=== PATIENT | male | born 1960 | race Native Hawaiian/Other Pacific Islander ===

== ENCOUNTER 2017-11-01 00:38 | Day surgery (SDC) | payer OTHER ==
[~2017-11-01 00:38] MED LIST: ASPI81CH PO; ATOR40TA PO; Aldactone25 MG PO; B Complex #11 EACH PO; BRAIN MIGHT-DH1 EACH PO; Bactrim Ds Tab1 EACH PO; CARV3.125 PO; CIPR500 PO; CLOP75 PO; Chantix1 EACH; Colace250 MG PO; DIPH50 PO; DOC250 PO; EFFIENT10 MG PO; ENOX40I SC; FURO80 PO; Ferrous Sulfat325 M2 PO; HYDR1TAB94 PO; LEVFLO500 PO; LISI5 PO; METO25ER PO; NEPHROCAP PO; OXYC5 PO; SACC250C PO; TAMS.4ER PO; TRAM50 PO; Triamcinolone A15 GM TOP
== END 2017-11-01 22:41 | disposition home or self-care (01) ==
LOC: WOUND 00:38
PROC: 0HBMXZZ Excision of Right Foot Skin, External Approach (ICD-10-PCS; principal; 2017-11-01)
DX: Z48.00 Encounter for change or removal of nonsurgical wound dressing (principal); I73.1 Thromboangiitis obliterans [Buerger's disease]; S81.801D Unspecified open wound, right lower leg, subsequent encounter; L40.9 Psoriasis, unspecified; Z86.14 Personal history of Methicillin resistant Staphylococcus aureus infection; Z87.891 Personal history of nicotine dependence; X58.XXXD Exposure to other specified factors, subsequent encounter
CPT/HCPCS: G0463

== ENCOUNTER 2017-11-01 14:28 | Emergency (ER) | payer OTHER ==
[~2017-11-01] VITALS: Ht 167.6 cm; Wt 127.0 kg
[2017-11-01 16:01] LABS: BASOPHILS ABSOLUTE AUTO 0.01 K/mm3 (0.00-0.23); BASOPHILS PERCENT AUTO 0 % (0-2); EOSINOPHILS ABSOLUTE AUTO 0.32 K/mm3 (0.00-0.68); EOSINOPHILS PERCENT AUTO 4 % (0-6); Hematocrit 41.4 % (37.0-53.0); Hemoglobin 13.9 g/dL (13.5-17.5); IMMATURE GRAN ABSOLUTE AUTO 0.02 K/mm3 (0.00-0.10); IMMATURE GRAN PERCENT AUTO 0 % (0-1); LYMPHOCYTES ABSOLUTE AUTO 1.78 K/mm3 (0.84-5.20); LYMPHOCYTES PERCENT AUTO 19 % (21-46); MONOCYTES ABSOLUTE AUTO 0.72 K/mm3 (0.16-1.47); MONOCYTES PERCENT AUTO 8 % (4-13); Mean Corpuscular HGB 30.3 pg (26.0-34.0); Mean Corpuscular HGB Conc 33.6 g/dL (31.5-36.5); Mean Corpuscular Volume 90 fL (80-100); Mean Platelet Volume 9.4 fL (9.1-12.4); NEUTROPHILS ABSOLUTE AUTO 6.35 K/mm3 (1.96-9.15); NEUTROPHILS PERCENT AUTO 69 % (41-73); Platelet Count 312 K/mm3 (150-400); RDW Coefficient Variation 13.4 % (11.7-14.2); RDW Standard Deviation 43.6 fL (35.1-46.3); Red Blood Cell Count 4.59 M/mm3 (4.30-5.90)
[2017-11-01 16:14] LABS: Alanine Aminotransfer (ALT/SGP 51 U/L (12-78); Albumin, Blood 3.3 g/dL (3.4-5.0); Albumin/Globulin Ratio 0.6 (0.8-1.8); Alk Phos 106 U/L (50-136); Anion Gap 12 mmol/L (6-16); Aspartate Aminotrans (AST/SGOT 50 U/L (12-37); Bilirubin, Total 1.3 mg/dL (0.1-1.0); Blood Urea Nitrogen 18 mg/dL (8-24); Bun/Creatinine Ratio 23.7 (12.0-20.0); CO2, Blood 23 mmol/L (21-32); Calcium, Blood 8.8 mg/dL (8.5-10.1); Chloride, Blood 101 mmol/L (98-108); Creatinine, Blood 0.76 mg/dL (0.60-1.20); Globulin, Blood 5.3 g/dL (2.2-4.0); Glomerular Filtration Rate >60 (60-); Glucose, Blood 143 mg/dL (70-99); Sodium, Blood 136 mmol/L (136-145); Total Protein, Blood 8.6 g/dL (6.4-8.2); Troponin I <0.015 ng/mL (0.000-0.040)
== END 2017-11-01 17:37 | disposition home or self-care (01) ==
LOC: ER 14:28
PROVIDERS: Emergency Medicine
DX: R07.89 Other chest pain (principal); R06.00 Dyspnea, unspecified; I25.10 Atherosclerotic heart disease of native coronary artery without angina pectoris; Z91.013 Allergy to seafood; Z79.82 Long term (current) use of aspirin; Z79.899 Other long term (current) drug therapy; Z79.891 Long term (current) use of opiate analgesic; Z87.891 Personal history of nicotine dependence
CPT/HCPCS: 36415; 71046; 80053; 83880; 84484; 85025; 93005; 93010; 99283

== ENCOUNTER 2017-11-08 09:00 | Day surgery (SDC) | payer OTHER | END 2017-11-08 11:04 | disposition home or self-care (01) | LOC: WOUND 09:00 | DX: Z48.00 Encounter for change or removal of nonsurgical wound dressing (principal); S81.809S Unspecified open wound, unspecified lower leg, sequela; I73.1 Thromboangiitis obliterans [Buerger's disease]; Z87.891 Personal history of nicotine dependence; I25.10 Atherosclerotic heart disease of native coronary artery without angina pectoris | CPT/HCPCS: 87081; G0463 ==

== ENCOUNTER 2020-11-27 11:21 | Emergency (ER) | payer OTHER ==
[~2020-11-27] VITALS: Ht 172.7 cm; Wt 108.9 kg
== END 2020-11-27 13:11 | disposition home or self-care (01) ==
LOC: ER 11:21
DX: M79.662 Pain in left lower leg (principal); I25.10 Atherosclerotic heart disease of native coronary artery without angina pectoris; M79.89 Other specified soft tissue disorders; F17.200 Nicotine dependence, unspecified, uncomplicated; Z79.899 Other long term (current) drug therapy; Z79.82 Long term (current) use of aspirin
CPT/HCPCS: 93971; 99284-25

== ENCOUNTER 2024-04-05 21:25 | Emergency (ER) | payer OTHER ==
[~2024-04-05] VITALS: Ht 177.8 cm; Wt 90.3 kg
[~2024-04-05 21:25] MED LIST changes: +AMOCLA875 PO; +CEFTRIAXONE2 G1 IV; +Colace100 MG PO; +FURO20 PO; +GORMEL TEN228 G1 TOP; +HYDHCL25 PO; +JARDIANCE25 MG PO; +LOSARTAN-HCTZ1 EACH PO; +MELA3 PO; +METF500 PO; +METO25 PO; +MIRALAX17 GM PO; +OMEP20ER PO; +SENNA LAXATIVE8.6 MG PO; +SPIR25 PO; +VISBIOME 112.51 EACH PO; +XARELTO20 MG PO
[2024-04-05] MEDS ORDERED: Ondansetron HCl 2 MG / ML 2ML Vial IV ONE (21:55)
[2024-04-05 22:24] LABS: BASOPHILS ABSOLUTE AUTO 0.03 K/mm3 (0.00-0.23); BASOPHILS PERCENT AUTO 1 % (0-2); EOSINOPHILS PERCENT AUTO 8 % (0-6); Hematocrit 47.3 % (37.0-53.0); Hemoglobin 15.4 g/dL (13.5-17.5); IMMATURE GRAN ABSOLUTE AUTO 0.02 K/mm3 (0.00-0.10); IMMATURE GRAN PERCENT AUTO 0 % (0-1); LYMPHOCYTES ABSOLUTE AUTO 0.81 K/mm3 (0.84-5.20); LYMPHOCYTES PERCENT AUTO 12 % (21-46); MONOCYTES ABSOLUTE AUTO 0.47 K/mm3 (0.16-1.47); MONOCYTES PERCENT AUTO 7 % (4-13); Mean Corpuscular HGB 30.7 pg (26.0-34.0); Mean Corpuscular HGB Conc 32.6 g/dL (31.5-36.5); Mean Corpuscular Volume 94 fL (80-100); Mean Platelet Volume 9.5 fL (9.1-12.4); NEUTROPHILS ABSOLUTE AUTO 4.82 K/mm3 (1.96-9.15); NEUTROPHILS PERCENT AUTO 72 % (41-73); Platelet Count 283 K/mm3 (150-400); RDW Coefficient Variation 17.7 % (11.7-14.2); RDW Standard Deviation 61.1 fL (35.1-46.3); Red Blood Cell Count 5.02 M/mm3 (4.30-5.90); White Blood Cell Count 6.65 K/mm3 (4.00-11.30)
[2024-04-05 22:41] LABS: Albumin, Blood 2.1 g/dL (3.4-5.0); Albumin/Globulin Ratio 0.3 (0.8-1.8); Bilirubin, Total 2.3 mg/dL (0.1-1.0); Bun/Creatinine Ratio 24.9 (12.0-20.0); Calcium, Blood 8.9 mg/dL (8.5-10.1); Creatinine, Blood 0.8 mg/dL (0.60-1.20); Globulin, Blood 6.1 g/dL (2.2-4.0); Potassium, Blood 4.3 mmol/L (3.5-5.5); Total Protein, Blood 8.2 g/dL (6.4-8.2)
[2024-04-06] MEDS ORDERED: Ondansetron HCl 2 MG / ML 2ML Vial ONE (00:30)
[2024-04-06] MEDS ORDERED: TRAM50 PO (00:36)
[2024-04-06] MEDS ORDERED: NS 1,000 ML IV SCH (01:15)
[2024-04-06] MEDS ORDERED: Metoclopramide HCl 5MG / ML 2ML Vial IV ONE (01:15)
[2024-04-06] MEDS ORDERED: ONDA4ODT MM (03:54)
[2024-04-06 04:30] VITALS: BP 137/81
== END 2024-04-06 05:18 | disposition home or self-care (01) ==
LOC: ER 21:25
PROVIDERS: Physician Assistant
DX: R11.2 Nausea with vomiting, unspecified (principal); E86.0 Dehydration; Z91.013 Allergy to seafood; Z79.899 Other long term (current) drug therapy; Z79.82 Long term (current) use of aspirin; Z87.891 Personal history of nicotine dependence
CPT/HCPCS: 80053; 85025; 96361; 96374; 96375; 99284; J2405; J2765; J7030

== ENCOUNTER 2025-08-19 11:40 | Inpatient (IN) | payer OTHER ==
[~2025-08-19] VITALS: Ht 175.3 cm; Wt 83.3 kg
[~2025-08-19 11:40] MED LIST changes: +ONDA4ODT MM
[2025-08-19] MEDS ORDERED: Naloxone HCL 4 MG SPRAY (1 UNIT) ONE (11:45)
[2025-08-19] MEDS ORDERED: Naloxone HCl 1MG / ML 2ML SYR IV ONE (11:50)
[2025-08-19 11:58] LABS: BASOPHILS ABSOLUTE AUTO 0.03 K/mm3 (0.00-0.23); BASOPHILS PERCENT AUTO 0 % (0-2); EOSINOPHILS ABSOLUTE AUTO 0.08 K/mm3 (0.00-0.68); EOSINOPHILS PERCENT AUTO 1 % (0-6); Hematocrit 45.5 % (37.0-53.0); Hemoglobin 15.0 g/dL (13.5-17.5); IMMATURE GRAN ABSOLUTE AUTO 0.02 K/mm3 (0.00-0.10); IMMATURE GRAN PERCENT AUTO 0 % (0-1); LYMPHOCYTES ABSOLUTE AUTO 0.49 K/mm3 (0.84-5.20); LYMPHOCYTES PERCENT AUTO 7 % (21-46); MONOCYTES ABSOLUTE AUTO 0.31 K/mm3 (0.16-1.47); MONOCYTES PERCENT AUTO 4 % (4-13); Mean Corpuscular HGB Conc 33.0 g/dL (31.5-36.5); Mean Corpuscular Volume 93 fL (80-100); NEUTROPHILS ABSOLUTE AUTO 6.08 K/mm3 (1.96-9.15); NEUTROPHILS PERCENT AUTO 87 % (41-73); NRBC ABSOLUTE 0.00 K/mm3 (0.00-0.02); NRBC Auto 0.0 /100 WBC (0.0-0.2); Platelet Count 294 K/mm3 (150-400); RDW Coefficient Variation 16.0 % (11.7-14.2); RDW Standard Deviation 55.0 fL (35.1-46.3)
[2025-08-19 12:20] LABS: Alanine Aminotransfer (ALT/SGP 63 U/L (12-78); Albumin, Blood 3.7 g/dL (3.4-5.0); Albumin/Globulin Ratio 0.8 (0.8-1.8); Anion Gap 15 mmol/L (3-11); Aspartate Aminotrans (AST/SGOT 109 U/L (12-37); Bilirubin, Total 2.9 mg/dL (0.1-1.0); Blood Urea Nitrogen 30 mg/dL (8-24); CO2, Blood 24 mmol/L (21-32); Calcium, Blood 9.4 mg/dL (8.5-10.1); Chloride, Blood 99 mmol/L (98-108); Creatinine, Blood 0.79 mg/dL (0.60-1.20); Ethanol (Alcohol), Blood, Med <3 mg/dL; Globulin, Blood 4.5 g/dL (2.2-4.0); Glucose, Blood 52 mg/dL (70-99); Potassium, Blood 4.2 mmol/L (3.5-5.5); Sodium, Blood 134 mmol/L (136-145); Total Protein, Blood 8.2 g/dL (6.4-8.2)
[2025-08-19] MEDS ORDERED: NS 1,000 ML IV SCH ×3 (12:55→20:00)
[2025-08-19 13:05] LABS: U Amphetamine Screen DETECTED; U Barbiturate Screen Not Detected; U Benzodiazapine Screen Not Detected; U Buprenorphine Screen Not Detected; U Cannabinoids Screen Not Detected; U Cocaine Screen Not Detected; U Methadone Screen Not Detected; U Methamphetamine Screen DETECTED; U Opiates Screen Not Detected; U Oxycodone Screen Not Detected; U Phencyclidine Screen Not Detected
[2025-08-19 14:39] LABS: Source, Urine Clean Catch
[2025-08-19 14:44] LABS: Color, Urine Amber (P-Yellow); Glucose Qualitative, Urine Neg (Neg); Ketones, Urine 2+ (Neg); Leukocyte Esterase, Urine Neg (Neg); Protein, Urine 3+ (Neg); Specific Gravity, Urine 1.030 (1.003-1.022); Urobilinogen, Urine 1+ (Normal)
[2025-08-19 14:53] LABS: Bilirubin, Urine 1+ (Neg)
[2025-08-19 15:00] LABS: Red Blood Cells, Urine 0-2 /hpf (0-2)
[2025-08-19] MEDS ORDERED: FLU VACC TS2025-26(6MOS UP)/PF 45 MCG/0.5 ML SYRINGE IM SCH (15:15)
[2025-08-19] MEDS ORDERED: CARVEDILOL3.125 MG PO (15:22)
[2025-08-19] MEDS ORDERED: Zestril30 MG PO (15:23)
[2025-08-19] MEDS ORDERED: D5W-LR 1,000 ML IV SCH (16:25)
[2025-08-19 16:46] VITALS: BP 145/63
--- NOTE | 2025-08-19 18:02 | NUR ---
SHIFT SUMMARY PATIENT IS A&OX3-4. SLURRED SPEECH, RIGHT SIDED UPPER EXTREMETY WEAKNESS, PATIENT REPORTS THIS FROM A HISTORICAL INFARCT. HE IS ON ROOM AIR, HAS TELE RUNNING AT AFIB WITH FEW PVC IN THE 70'S. COOPERATIVE WITH CARE. BED IS LOW AND CALL LIGHT IS IN REACH.
--- NOTE | 2025-08-19 18:04 | NUR ---
ASSUMPTION OF CARE AT 1630
--- NOTE | 2025-08-19 18:04 | NUR ---
CALL FOR REPORT TO ED MADE AT [id number]
--- NOTE | 2025-08-19 19:05 | NUR ---
190- THIS RN NOTIFIED MD ANGELES FERRER THAT PT HAD PASSED AT 1840. VOICEMAIL LEFT.
[2025-08-19 20:22] VITALS: BP 149/74
[2025-08-19 20:37] LABS: Albumin, Blood 2.9 g/dL (3.4-5.0); Anion Gap 15 mmol/L (3-11); Blood Urea Nitrogen 26 mg/dL (8-24); CO2, Blood 21 mmol/L (21-32); Calcium, Blood 8.4 mg/dL (8.5-10.1); Chloride, Blood 103 mmol/L (98-108); Creatinine, Blood 0.72 mg/dL (0.60-1.20); Glucose, Blood 97 mg/dL (70-99); Phosphorus, Blood 2.6 mg/dL (2.5-4.9); Potassium, Blood 3.4 mmol/L (3.5-5.5); Sodium, Blood 136 mmol/L (136-145)
[2025-08-20 00:34] VITALS: BP 124/63
--- NOTE | 2025-08-20 03:52 | NUR ---
LS CLEAR THROUGHOUT, WITH EXP WHEEZE TO RLL.
[2025-08-20 04:01] VITALS: BP 133/75
--- NOTE | 2025-08-20 04:44 | NUR ---
SHIFT SUMMARY: PT AOX4 ALTHOUGH SOMNULENT THROUGH MOST OF THE SHIFT. AWAKING TO PAIN AND STERNAL RUBS AND THEN AOX4, PLEASANT, AND FOLLOWING COMMANDS. NO SIGN OF FLUID OVERLOAD. PT DID NOT VOID MOST OF THE SHIFT SO ENCOURAGED TO GET UP AND USE THE RESTROOM ~0400, TRANSFERRED SBA WITH FWW AND HAD A STRONG VOID. PT IN BED RESTING, TOLERATING MEDICATIONS WELL, CBGS HAVE STABLIZED. PT IN BED RESTING, BED IN LOWEST POSITION, CALL LIGHT IN REACH, CONTINUING CARE.
[2025-08-20 05:49] LABS: BASOPHILS ABSOLUTE AUTO 0.02 K/mm3 (0.00-0.23); BASOPHILS PERCENT AUTO 0 % (0-2); EOSINOPHILS ABSOLUTE AUTO 0.33 K/mm3 (0.00-0.68); EOSINOPHILS PERCENT AUTO 6 % (0-6); Hematocrit 38.7 % (37.0-53.0); Hemoglobin 12.7 g/dL (13.5-17.5); IMMATURE GRAN ABSOLUTE AUTO 0.01 K/mm3 (0.00-0.10); IMMATURE GRAN PERCENT AUTO 0 % (0-1); LYMPHOCYTES ABSOLUTE AUTO 0.75 K/mm3 (0.84-5.20); LYMPHOCYTES PERCENT AUTO 14 % (21-46); MONOCYTES ABSOLUTE AUTO 0.49 K/mm3 (0.16-1.47); MONOCYTES PERCENT AUTO 9 % (4-13); Mean Corpuscular HGB Conc 32.8 g/dL (31.5-36.5); Mean Corpuscular Volume 92 fL (80-100); NEUTROPHILS ABSOLUTE AUTO 3.92 K/mm3 (1.96-9.15); NEUTROPHILS PERCENT AUTO 71 % (41-73); NRBC ABSOLUTE 0.00 K/mm3 (0.00-0.02); NRBC Auto 0.0 /100 WBC (0.0-0.2); Platelet Count 262 K/mm3 (150-400); RDW Coefficient Variation 16.0 % (11.7-14.2); RDW Standard Deviation 54.0 fL (35.1-46.3)
[2025-08-20 06:07] LABS: Alanine Aminotransfer (ALT/SGP 48.0 U/L (12-78); Albumin, Blood 2.7 g/dL (3.4-5.0); Albumin/Globulin Ratio 0.8 (0.8-1.8); Anion Gap 8.0 mmol/L (3-11); Aspartate Aminotrans (AST/SGOT 73.0 U/L (12-37); Bilirubin, Total 1.8 mg/dL (0.1-1.0); Blood Urea Nitrogen 20.0 mg/dL (8-24); CO2, Blood 27.0 mmol/L (21-32); Calcium, Blood 8.0 mg/dL (8.5-10.1); Chloride, Blood 104.0 mmol/L (98-108); Creatinine, Blood 0.83 mg/dL (0.60-1.20); Globulin, Blood 3.6 g/dL (2.2-4.0); Glucose, Blood 114.0 mg/dL (70-99); Potassium, Blood 3.2 mmol/L (3.5-5.5); Sodium, Blood 136.0 mmol/L (136-145); Total Protein, Blood 6.3 g/dL (6.4-8.2)
[2025-08-20 07:35] VITALS: BP 158/64
[2025-08-20] MEDS ORDERED: Enoxaparin 40 MG/0.4 ML SYR SC SCH (09:00)
[2025-08-20 11:40] VITALS: BP 135/67
[2025-08-20] MEDS ORDERED: UREA 10% TOP SCH (12:20)
--- NOTE | 2025-08-20 12:21 | NUR ---
CALL TO DR. MOORE AT 1215, ASKING FOR UREA 10% LOTION FOR PSORIATIC PLAQUES TO BE APPLIED BID PRESCRIBED OUTPATIENT, DOC AGREED TO THIS PLAN. ORDER PLACED.
[2025-08-20 15:42] LABS: Albumin, Blood 2.7 g/dL (3.4-5.0); Anion Gap 5 mmol/L (3-11); Blood Urea Nitrogen 16 mg/dL (8-24); CO2, Blood 30 mmol/L (21-32); Calcium, Blood 8.2 mg/dL (8.5-10.1); Chloride, Blood 105 mmol/L (98-108); Creatinine, Blood 0.78 mg/dL (0.60-1.20); Glucose, Blood 98 mg/dL (70-99); Phosphorus, Blood 2.2 mg/dL (2.5-4.9); Potassium, Blood 3.6 mmol/L (3.5-5.5); Sodium, Blood 136 mmol/L (136-145)
[2025-08-20 15:58] VITALS: BP 153/85
--- NOTE | 2025-08-20 17:04 | NUR ---
SHIFT SUMMARY PATIENT IS A&OX4, ALTHOUGH HE IS SOMNOLENT MOST OF THE TIME. HE IS PLEASANT AND COOPERATIVE WITH CARE. UNDERSTANDS HOW TO USE THE CALL LIGHT, BUT DOES NOT CALL. DOC APPROVED GETTING THE UREA 10% LOTION FOR HIS PSORIATIC PLAQUES, PATIENT WANTS TO SHOWER BEFORE PUTTING ON THE LOTION, BUT AGAIN, HAS BEEN SLEEPY MOST OF THE DAY. HE IS ON ROOM AIR. HAS TELE AND FUNNING AFIB WITH PVC AT 82BPM. HE AMBULATES WITH FWW AND SBA. PLANS TO BE EVALUATED BY [facility]PATIENT [facility], AND THEN HOPEFULLY REACCEPTED BY [facility]. HE IS CURRENTLY SLEEPING IN BED. BED IS IN THE LOWEST POSITION, BED ALARM SET. CALL LIGHT IN REACH.
[2025-08-20] MEDS ORDERED: Potassium Phos/Sodium Phos 250 MG PACK PO SCH (18:00)
[2025-08-20 19:36] VITALS: BP 128/63
[2025-08-21 00:07] VITALS: BP 131/87
[2025-08-21 03:55] VITALS: BP 138/80
[2025-08-21 05:25] LABS: BASOPHILS ABSOLUTE AUTO 0.02 K/mm3 (0.00-0.23); BASOPHILS PERCENT AUTO 1 % (0-2); EOSINOPHILS ABSOLUTE AUTO 0.41 K/mm3 (0.00-0.68); EOSINOPHILS PERCENT AUTO 10 % (0-6); Hematocrit 40.6 % (37.0-53.0); Hemoglobin 13.2 g/dL (13.5-17.5); IMMATURE GRAN ABSOLUTE AUTO 0.01 K/mm3 (0.00-0.10); IMMATURE GRAN PERCENT AUTO 0 % (0-1); LYMPHOCYTES ABSOLUTE AUTO 1.06 K/mm3 (0.84-5.20); LYMPHOCYTES PERCENT AUTO 26 % (21-46); MONOCYTES ABSOLUTE AUTO 0.38 K/mm3 (0.16-1.47); MONOCYTES PERCENT AUTO 9 % (4-13); Mean Corpuscular HGB Conc 32.5 g/dL (31.5-36.5); Mean Corpuscular Volume 94 fL (80-100); NEUTROPHILS ABSOLUTE AUTO 2.26 K/mm3 (1.96-9.15); NEUTROPHILS PERCENT AUTO 55 % (41-73); NRBC ABSOLUTE 0.00 K/mm3 (0.00-0.02); NRBC Auto 0.0 /100 WBC (0.0-0.2); Platelet Count 255 K/mm3 (150-400); RDW Coefficient Variation 16.4 % (11.7-14.2); RDW Standard Deviation 56.8 fL (35.1-46.3)
[2025-08-21 05:57] LABS: Albumin, Blood 2.7 g/dL (3.4-5.0); Anion Gap 10 mmol/L (3-11); Blood Urea Nitrogen 17 mg/dL (8-24); CO2, Blood 26 mmol/L (21-32); Calcium, Blood 9.0 mg/dL (8.5-10.1); Chloride, Blood 105 mmol/L (98-108); Creatinine, Blood 0.81 mg/dL (0.60-1.20); Glucose, Blood 104 mg/dL (70-99); Phosphorus, Blood 3.1 mg/dL (2.5-4.9); Potassium, Blood 3.9 mmol/L (3.5-5.5); Sodium, Blood 137 mmol/L (136-145)
--- NOTE | 2025-08-21 07:23 | NUR ---
SHIFT SUMMARY A/Ox4, PLEASANT. AFIB RHYTHM, OTHER VSS ON RA. PT DENIES PAIN, SOB, NAUSEA. UP TO RESTROOM WITH SBA/FWW. PT REPORTS UREA OINTMENT EFFECTIVE FOR PSORIATIC ITCH. NO ACUTE CHANGES OVERNIGHT. CALL LIGHT IN REACH, NO FURTHER NEEDS AT THIS TIME.
[2025-08-21 07:38] VITALS: BP 133/75
[2025-08-21] MEDS ORDERED: Prinivil10 MG PO ×2 (12:58→13:12)
[2025-08-21] MEDS ORDERED: B-1100 M2 PO (12:58)
[2025-08-21] MEDS ORDERED: CARV3.125 PO ×2 (12:59→13:11)
[2025-08-21] MEDS ORDERED: STEGLATRO5 MG PO ×2 (12:59→13:12)
[2025-08-21] MEDS ORDERED: FURO20 PO ×2 (13:00→13:13)
[2025-08-21] MEDS ORDERED: B-1100 M1 PO (13:13)
--- NOTE | 2025-08-21 13:59 | NUR ---
DISCHARGE PT DISCHARGED AFTER NEW MEDS AND FOLLOW UP INSTRUCTIONS WERE COMPLETED. IVS REMOVED & INTACT. PT SHOWERED TODAY AND HAD MEDICATED LOTION APPLIED ORDERED FOR PSORIASIS. PT PLEASANT & COOPERATIVE. STATES HE HAS NO FURTHER QUESTIONS AT THIS TIME. PT GIVEN BACK HIS LOCKED UP BELONGINGS AND INFORMED THAT NEW MEDS WERE CALLED TO [facility]. WHEELED OUT BY AIDE & TO BE PICKED UP BY A FRIEND.
== END 2025-08-21 13:44 | disposition home health service (06) | DRG 91 ==
LOC: ER 11:40 → MEDS 15:10
PROVIDERS: Emergency Medicine; ADMIT Family Medicine
DX: G92.8 Other toxic encephalopathy (principal); I21.4 Non-ST elevation (NSTEMI) myocardial infarction; I50.23 Acute on chronic systolic (congestive) heart failure; G93.1 Anoxic brain damage, not elsewhere classified; I48.20 Chronic atrial fibrillation, unspecified; M62.82 Rhabdomyolysis; Z59.00 Homelessness unspecified; I50.32 Chronic diastolic (congestive) heart failure; E16.2 Hypoglycemia, unspecified; R47.81 Slurred speech; R29.6 Repeated falls; E78.5 Hyperlipidemia, unspecified; I25.10 Atherosclerotic heart disease of native coronary artery without angina pectoris; I73.9 Peripheral vascular disease, unspecified; I11.0 Hypertensive heart disease with heart failure; R33.9 Retention of urine, unspecified; F15.90 Other stimulant use, unspecified, uncomplicated; E88.89 Other specified metabolic disorders; E86.0 Dehydration; L40.9 Psoriasis, unspecified; E87.6 Hypokalemia; Z91.013 Allergy to seafood; Z86.14 Personal history of Methicillin resistant Staphylococcus aureus infection; Z86.19 Personal history of other infectious and parasitic diseases; Z87.891 Personal history of nicotine dependence; Z86.73 Personal history of transient ischemic attack (TIA), and cerebral infarction without residual deficits; Z95.820 Peripheral vascular angioplasty status with implants and grafts; Z86.79 Personal history of other diseases of the circulatory system; Z79.82 Long term (current) use of aspirin; Z79.899 Other long term (current) drug therapy; Z71.51 Drug abuse counseling and surveillance of drug abuser
CPT/HCPCS: 36415; 51701; 51798; 70450; 71045; 80053; 80069; 80320; 81001; 82550; 82947; 83735; 83880; 84100; 84484; 85025; 93005; 93010; 93306; 93970; 96374; 97110; 97116; 97161; 99285-25; A9270; J1650; J2312; J7030; J7121